=== PATIENT | male | born 1980 | race Two or more races ===

== ENCOUNTER 2019-02-22 12:36 | Emergency (ER) | payer SELFPAY ==
[~2019-02-22] VITALS: Ht 182.9 cm; Wt 104.3 kg
[2019-02-22 12:49] VITALS: BP 164/116
== END 2019-02-22 16:55 | disposition left against medical advice (07) ==
LOC: ER 12:36
DX: S41.112D Laceration without foreign body of left upper arm, subsequent encounter (principal); Z48.02 Encounter for removal of sutures; Z53.21 Procedure and treatment not carried out due to patient leaving prior to being seen by health care provider; X58.XXXD Exposure to other specified factors, subsequent encounter